=== PATIENT | female | born 1955 | race Asian ===

== ENCOUNTER 2017-10-07 09:16 | Emergency (ER) | payer OTHER ==
[2017-10-07] MEDS: MECLIZINE 12.5 MG TAB PO (09:44)
[2017-10-07] MEDS: ONDANSETRON (ODT) 4 MG TAB ODT (09:44)
== END 2017-10-07 10:50 | disposition home or self-care (01) ==
LOC: E/R 09:16
DX: I10 Essential (primary) hypertension (principal); R11.0 Nausea
CPT/HCPCS: 82962; 93005; 99283-25